=== PATIENT | male | born 1970 ===

== ENCOUNTER 2023-01-24 06:21 | Day surgery (SDC) | payer OTHER ==
[~2023-01-24] VITALS: Ht 180.3 cm; Wt 102.1 kg
[~2023-01-24 06:21] MED LIST: FENOFIBRATE50 MG PO; LOVASA; PROTONIX20 MG PO
[2023-01-24] MEDS ORDERED: OXYC1TAB9 PO (09:43)
== END 2023-01-24 16:10 | disposition home or self-care (01) ==
LOC: CIR.AMB 06:21
PROVIDERS: ATTEND Surgery
DX: K64.2 Third degree hemorrhoids (principal); K64.4 Residual hemorrhoidal skin tags; K64.8 Other hemorrhoids; K62.89 Other specified diseases of anus and rectum; K62.5 Hemorrhage of anus and rectum; Z88.6 Allergy status to analgesic agent; Z20.822 Contact with and (suspected) exposure to COVID-19; E78.5 Hyperlipidemia, unspecified